=== PATIENT | female | born 1980 | race African-American/Black ===

== ENCOUNTER 2016-07-18 20:56 | Emergency (ER) | payer OTHER ==
[2016-07-18 21:23] VITALS: BMI 25.7
[2016-07-18] MEDS ORDERED: IBUPROFEN 600 MG TABLET (FP) PO ONE (23:56)
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
[2016-07-19] MEDS ORDERED: IBUPROFEN 600 MG TABLET (FP) PO ONE (00:05)
[2016-07-19 02:40] VITALS: BP 126/80; PULSE 80; TEMP 98
== END 2016-07-19 01:03 | disposition home or self-care (01) ==
LOC: JER 20:56 → JERFT 20:56 → JER 07-19 01:03
DX: S10.83XA Contusion of other specified part of neck, initial encounter (principal); Y04.2XXA Assault by strike against or bumped into by another person, initial encounter; Y93.89 Activity, other specified; Y92.89 Other specified places as the place of occurrence of the external cause; Y99.8 Other external cause status; Y07.9 Unspecified perpetrator of maltreatment and neglect
CPT/HCPCS: 99282-25